=== PATIENT | male | born 1955 | race Caucasian/White ===

== ENCOUNTER 2017-02-17 11:12 | Emergency (ER) | payer SELFPAY ==
[~2017-02-17 11:12] MED LIST: CYCL-36 PO; DICL-86 PO; Z.0.NO CURRENT MEDS
== END 2017-02-17 11:58 | disposition left against medical advice (07) ==
LOC: PHED 11:12
DX: Z53.21 Procedure and treatment not carried out due to patient leaving prior to being seen by health care provider (principal)
CPT/HCPCS: 99281